=== PATIENT | female | born 1975 | race Caucasian/White ===

== ENCOUNTER 2018-10-05 12:08 | Emergency (ER) | payer MEDICARE, MEDICAID ==
[~2018-10-05] VITALS: Ht 165.1 cm; Wt 68.0 kg
[~2018-10-05 12:08] MED LIST: ADDERALL 10 MG10 MG PO; ATIVAN1 MG ORAL; BACTRIM-DS1 EA PO; CEPHALEXIN500 MG PO; CYMBALTA20 MG ORAL; DEPAKOTE500 MG PO; GABAPENTIN600 MG PO; MONISTAT 7100 MG VG; NEURONTIN100 MG ORAL; NEURONTIN600 MG PO; NORCO 10-325 T1 EACH ORAL; NORCO 5-325 TA1 EACH PO; NORCO1 E1 PO; PRILOSEC20 MG ORAL
[2018-10-05] MEDS ORDERED: IVERMECTIN5 GM MC (12:20)
--- NOTE | 2018-10-05 12:20 | NUR ---
ED Nurse Note: patient walked into ED c/o contact dermatitis she states that she just different ER today, she was prescribed permethirin cream that she showed to RN. patient is a/o x4.
--- NOTE | 2018-10-05 12:42 | Emergency Room Report ---
History of Present Illness General Chief Complaint: Skin Rash/Abscess Source: Patient Present Illness HPI 43-year-old female patient presents the ER complaining of parasitic skin infection that has been present for the past 4 days. Also reports parasites in stool. Patient states that she was seen by another hospital yesterday and told that she needs to be monitored while she is taking medication to treat it. States that she was prescribed permethrin and ivermectin, states she needs to have her "organs monitored" while she is taking the ivermectin. Reports that she was unable to fill the ivermectin prescription, states that she applied the permethrin to her skin and that her symptoms mildly improved. Denies other aggravating or relieving factors. 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 Review of Systems All Other Systems: negative except mentioned in HPI Physical Exam Vital Signs Date Time Temp Pulse Resp B/P (MAP) Pulse Ox O2 Delivery O2 Flow Rate FiO2 10/05/18 12:12 98.2 80 22 122/89 100 Room Air Sp02 EP Interpretation: reviewed, normal General Appearance: well appearing, no apparent distress, alert, GCS 15, non- toxic Head: normocephalic, atraumatic Eyes: bilateral eye normal inspection, bilateral eye PERRL ENT: hearing grossly normal, normal pharynx, no angioedema, normal voice, uvula midline, moist mucus membranes Neck: full range of motion Respiratory: lungs clear, normal breath sounds, no rhonchi, no respiratory distress, no accessory muscle use, no wheezing, speaking full sentences Cardiovascular #1: regular rate, rhythm, no edema Gastrointestinal: non tender, soft, no mass, non-distended, no guarding, no rebound Genitourinary: no CVA tenderness Musculoskeletal: back normal, digits/nails normal, gait/station normal, normal range of motion, non-tender Neurologic: alert, oriented x3, responsive, motor strength/tone normal, sensory intact Skin: rash - bialteral upper extremities: hyperpigmented skin macules, mild erytheam, no edema, no TTP, no palpable mass, no target sign, no central clearing Medical Decision Making PA Attestation Dr. Price is my supervising Physician whom patient management has been discussed with. Homeless Attestation Nivia Guerrero have assessed and agree that the patient is medically stable for discharge to an outpatient disposition. Diagnostic Impression: Primary Impression: Rash and other nonspecific skin eruption ER Course Pt. presents to the ED c/o rash. Ddx considered but are not limited to atopic dermatitis, scabies, shingles, hives, urticaria, angiodema, allergic reaction, impetigo, parasitic infection. Patient's vitals stable, physical exam benign, do not believe patient requires labs drawn at this time. Vital signs: are WNL, pt. is afebrile ER COURSE Provided with permethrin in the ER. informed patient she must followup with PCP and discuss further treatment and lab monitoring while taking ivermectin. Informed patient she needs to fill prescription for ivermectin and should contact nearby pharmacies. Followup with dermatology. Followup with infectious disease. Discuss referral with PCP. ER precautions given. DISCHARGE: Rx provided for permethrin At this time pt. is stable for d/c to home. Patient resting comfortably, in no acute distress, nontoxic appearinge. Will provide printed patient care instructions, and any necessary prescriptions. Care plan and follow up instructions have been discussed with the patient prior to discharge. Patient provided with list of healthcare clinics to establish primary care physician. Patient instructed to follow-up with primary care provider in 3 - 5 days. Patient questions asked and answered. ER precautions given. Patient instructed to return to ER immediately for any new or worsening of symptoms including but not limited to increasing SOB, persistent fever. - Please note that this Emergency Department Report was dictated using [employer] machine pilot can router technology software, occasionally this can lead to erroneous entry secondary to interpretation by the dictation equipment. Last Vital Signs Date Time Temp Pulse Resp B/P (MAP) Pulse Ox O2 Delivery O2 Flow Rate FiO2 10/05/18 12:12 98.2 80 22 122/89 100 Room Air Disposition: HOME, SELF-CARE Condition: Stable Scripts Permethrin* (ELIMITE*) 60 Gm Cream..g. 1 APPLIC TOPIC ONCE, #60 GM 0 Refills Apply cream from head to toe; leave on for 8-14 hours before washing off with water; may reapply in 1 week if live mites appear. Prov: Steffen Guerrero 10/05/18 Patient Instructions: Ivermectin tablets, Ova and Parasite Stool Exam, Rash, Scabies, Pediatric Additional Instructions: Followup with primary care provider in 3 -5 days. Request referral to dermatology as needed. Do not scratch or itch. Apply cool compresses to affected area. Wash all clothes and bedding. Take medications as directed. SE Benadryl drowsiness, do not take prior to drinking, driving, operating heavy machinery. Take Claritin during the day and Benadryl at night for itching symptoms. Patient questions asked and answered. ER precautions given, patient instructed to return to ER immediately for any new or worsening of symptoms. [facility] Steffen Guerrero Oct 05, 2018 12:42
[2018-10-05 12:50] VITALS: BP 122/89
[2018-10-05] MEDS ORDERED: PERMETHRIN60 GM TOPIC (13:47)
--- NOTE | 2018-10-05 13:50 | NUR ---
ED Nurse Note: Pt is cleared for discharge per ER PA Discharge instrcution/paper/ prescription given and explained to the patient, patient verbalized understanding. pt is alert and oriented x4, ambulated out of ED steady gait with all belongigns. pt is stable for DC. VSS. pt ID band removed. patient refused to get any help for her skilled nursing, she stated that "she has a safe place to go." patient proivded with sandwich and juice, but she refused to take sandwich. patient's clothing appropriate for weather. patient stated she can afford her transportation. patient refused further assessment of resources and services. .
[2018-10-05 19:10] VITALS: BP 122/89
== END 2018-10-05 13:50 | disposition home or self-care (01) ==
LOC: EMR 12:50
DX: L08.9 Local infection of the skin and subcutaneous tissue, unspecified (principal); Z59.0 Homelessness; Z88.8 Allergy status to other drugs, medicaments and biological substances
CPT/HCPCS: 99282

== ENCOUNTER 2018-10-17 12:03 | Emergency (ER) | payer MEDICARE, MEDICAID ==
[~2018-10-17] VITALS: Ht 165.1 cm; Wt 63.5 kg
[~2018-10-17 12:03] MED LIST changes: +IVERMECTIN5 GM MC; +PERMETHRIN60 GM TOPIC
--- NOTE | 2018-10-17 12:03 | NUR ---
ED Nurse Note: brought in by RA [facility] from [place] due to ETOH. Per EMS, pt reports that she drank about 20oz of vodka over 8 hours since last night. Hx of seizure and BS 116
[2018-10-17 12:05] VITALS: BP 116/79
--- NOTE | 2018-10-17 12:35 | NUR ---
ED Nurse Note: unable to get IV access nor draw blood, notified CAROLYNN Altman.
--- NOTE | 2018-10-17 12:42 | Emergency Room Report ---
History of Present Illness General Chief Complaint: Alcohol Intoxication Source: Patient, EMS Present Illness HPI 43-year-old female patient presents the ER brought by EMS complaining of alcohol intoxication. Reports drink "a bunch" of alcohol earlier today. Reports history of seizures when "coming down" from drinking alcohol. Denies history of seizure disorder. Denies thoughts of hurting himself or others. Denies other acute complaints. Reports does not remember hitting her head. Patient is a poor historian. Patient complaining of diarrhea, denies blood in diarrhea. Denies recent travel. Also complaining of epigastric pain. Denies vomiting. Allergies: Coded Allergies: HALOPERIDOL (Verified Allergy, Unknown, 01/25/15) RISPERIDONE (Verified Allergy, Unknown, 01/25/15) Patient History Past Medical History: see triage record Reviewed Nursing Documentation: PMH: Agreed; PSxH: Agreed Nursing Documentation-PMH Past Medical History: No History, Except For Hx Cardiac Problems: Yes - IV DRUG USE Hx Cancer: No Hx Gastrointestinal Problems: Yes - PANCREATITIS 6 month ago Hx Neurological Problems: Yes - "Exposed to heavy metals" Hx Seizures: Yes Review of Systems All Other Systems: negative except mentioned in HPI Physical Exam Vital Signs Date Time Temp Pulse Resp B/P (MAP) Pulse Ox O2 Delivery O2 Flow Rate FiO2 10/17/18 11:56 98.2 94 14 116/79 99 Sp02 EP Interpretation: reviewed, normal General Appearance: well appearing, no apparent distress, alert, GCS 15, non- toxic Head: normocephalic, atraumatic, other - negative rodriguez sign, negative raccoon eyes Eyes: bilateral eye normal inspection, bilateral eye PERRL ENT: hearing grossly normal, normal pharynx, no angioedema, normal voice, uvula midline, moist mucus membranes Neck: full range of motion, no bony tend Respiratory: lungs clear, normal breath sounds, no rhonchi, no respiratory distress, no accessory muscle use, no wheezing, speaking full sentences Cardiovascular #1: regular rate, rhythm, no edema Gastrointestinal: non tender, soft, no mass, non-distended, no guarding, no rebound Musculoskeletal: back normal, digits/nails normal, gait/station normal, normal range of motion, non-tender Neurologic: alert, oriented x3, responsive, motor strength/tone normal, sensory intact Psychiatric: mood/affect normal Skin: no rash Medical Decision Making PA Attestation Dr. Meeks is my supervising Physician whom patient management has been discussed with. Homeless Attestation I, The treating provider, Steffen PRADHAN, has assessed and agrees that patient is medically stable for discharge to an outpatient disposition. Diagnostic Impression: Primary Impression: Acute alcoholic intoxication Additional Impression: Urinary tract infection ER Course Pt. presents to the ED for alcohol intoxication Ddx considered but are not limited to drug use, alcohol use, psychosis. Vital signs: are WNL, pt. is afebrile ER COURSE: CBC and CMP unremarkable Elevated serum alcohol, patient is salicylates or acetaminophen levels. Urine sample not provided by patient. CT head shows no acute intracranial supply. patient resting comfortably in bed, in no acute distress, nontoxic appearing. Physical exam benign, lungs clear to auscultation, no trauma or lacerations, no abdominal TTP. Will allow patient to sleep off EtOH intoxication Patient able to eat food and drink liquids without difficulty. Patient able to answer questions, and AOx4 Patient able to walk and talk without difficulty. Patient appears stable for discharge to home, ambulating without difficulty. Instructed patient to not drink alcohol in excess. ER precautions given. Do not believe patient is a danger to herself or others at this time. Patient seen by Dr. Price, informed by him to provide patient with prescription for urinary tract infection, patient states she had a urinary tract infection however she lost the prescription. Also discharge patient home with Librium due to withdrawal effects from alcohol. Advised patient not to drink alcohol in excess. DISCHARGE: At this time pt is stable for d/c to home. Patient is resting comfortably, in no acute distress, nontoxic appearing, talking without difficulty. Patient to take medications as instructed Will provide with patient care instructions and any necessary prescriptions. Care plan and follow-up instructions provided. Patient instructed to follow-up with primary care provider in 3 - 5 days. Patient questions asked and answered. Patient reports understanding and agreement to treatment plan. ER precautions given. Patient instructed to return to ER immediately for any new or worsening of symptoms including but not limited to increasing SOB, persistent fever. - Please note that this Emergency Department Report was dictated using [employer] technology software, occasionally this can lead to erroneous entry secondary to interpretation by the dictation equipment. Labs Test 10/17/18 14:30 White Blood Count 7.6 K/UL (4.8-10.8) Red Blood Count 4.57 M/UL (4.20-5.40) Hemoglobin 13.2 G/DL (12.0-16.0) Hematocrit 41.4 % (37.0-47.0) Mean Corpuscular Volume 91 FL (80-99) Mean Corpuscular Hemoglobin 29.0 PG (27.0-31.0) Mean Corpuscular Hemoglobin Concent 32.0 G/DL (32.0-36.0) Red Cell Distribution Width 16.7 % (11.6-14.8) Platelet Count 384 K/UL (150-450) Mean Platelet Volume 5.9 FL (6.5-10.1) Neutrophils (%) (Auto) 72.0 % (45.0-75.0) Lymphocytes (%) (Auto) 23.1 % (20.0-45.0) Monocytes (%) (Auto) 4.1 % (1.0-10.0) Eosinophils (%) (Auto) 0.3 % (0.0-3.0) Basophils (%) (Auto) 0.5 % (0.0-2.0) Sodium Level 144 MMOL/L (136-145) Potassium Level 3.7 MMOL/L (3.5-5.1) Chloride Level 107 MMOL/L (98-107) Carbon Dioxide Level 27 MMOL/L (21-32) Anion Gap 10 mmol/L (5-15) Blood Urea Nitrogen 5 mg/dL (7-18) Creatinine 0.7 MG/DL (0.55-1.30) Estimat Glomerular Filtration Rate > 60 mL/min (>60) Glucose Level 78 MG/DL (74-106) Calcium Level 8.2 MG/DL (8.5-10.1) Total Bilirubin 0.3 MG/DL (0.2-1.0) Aspartate Amino Transf (AST/SGOT) 105 U/L (15-37) Alanine Aminotransferase (ALT/SGPT) 57 U/L (12-78) Alkaline Phosphatase 106 U/L (46-116) Total Protein 8.2 G/DL (6.4-8.2) Albumin 3.2 G/DL (3.4-5.0) Globulin 5.0 g/dL Albumin/Globulin Ratio 0.6 (1.0-2.7) Salicylates Level 0.6 ug/mL (2.8-20) Acetaminophen Level < 2 MCG/ML (10-30) Serum Alcohol 385 mg/dL CT/MRI/US Diagnostic Results CT/MRI/US Diagnostic Results : Imaging Test Ordered: CT head Impression Impression: Negative for acute intracranial bleed or mass effect. Central and cortical volume loss, striking for age and progressive since prior exam of 03/04/2012 Last Vital Signs Date Time Temp Pulse Resp B/P (MAP) Pulse Ox O2 Delivery O2 Flow Rate FiO2 10/17/18 11:56 98.2 94 14 116/79 99 Status: improved Disposition: HOME, SELF-CARE Condition: Stable Scripts Cephalexin* (KEFLEX*) 500 Mg Capsule 500 MG ORAL EVERY 12 HOURS, #14 CAP 0 Refills Prov: Steffen Guerrero 10/17/18 Chlordiazepoxide Hcl* (LIBRIUM*) 10 Mg Capsule 10 MG ORAL THREE TIMES A DAY, #15 CAP 0 Refills Prov: Steffen Guerrero 10/17/18 Patient Instructions: Alcohol Intoxication, [id number], Urinary Tract Infection, [id number] Additional Instructions: Followup with primary care provider and followup with and./or OBGYN. Do not drink alcohol in excess. Follow-up with drug and alcohol rehab treatment center. Drink plenty of fluids. Take medications as directed. Patient questions asked and answered. ER precautions given, patient instructed to return to ER immediately for any new or worsening of symptoms. Steffen Guerrero Oct 17, 2018 12:42
--- NOTE | 2018-10-17 13:24 | Diagnostic Imaging Report ---
Indications: Altered level of consciousness, history of alcohol abuse Technique: Spiral acquisitions obtained through the brain. Angled axial and coronal 5 x 5 mm slices were reconstructed. Total dose length product 1326.46 mGycm. CTDI vol(s) 70.38 mGy. Dose reduction achieved using automated exposure control Comparison: 03/04/2012 Findings: There is enlargement of the ventricles and extra axial CSF spaces which is striking for age and progressive since prior exam of 03/04/2012. No acute intercranial hemorrhage nor edema, mass effect, nor midline shift. Normal awad-white differentiation. Intact calvarium. Visualized orbits and sinuses are unremarkable. The mastoids are clear. Impression: Negative for acute intracranial bleed or mass effect. Central and cortical volume loss, striking for age and progressive since prior exam of 03/04/[address] scanner at [facility] is accredited by the [employer] and the scans are performed using protocols designed to limit radiation exposure to as low as reasonably achievable to attain images of sufficient resolution adequate for diagnostic evaluation.
--- NOTE | 2018-10-17 13:30 | NUR ---
ED Nurse Note: Multiple RNs attempted, notified RICCO Cortes. RICCO Cortes will come and try when she can. indoor plant technician contacted to draw blood.
[2018-10-17 14:43] LABS: BASOPHILS % (AUTO) 0.5 % (0.0-2.0); EOSINOPHILS % (AUTO) 0.3 % (0.0-3.0); HEMATOCRIT 41.4 % (37.0-47.0); HEMOGLOBIN 13.2 G/DL (12.0-16.0); LYMPHOCYTES % (AUTO) 23.1 % (20.0-45.0); MEAN CORPUSCULAR VOLUME 91 FL (80-99); MONOCYTES % (AUTO) 4.1 % (1.0-10.0); PLATELET COUNT 384 K/UL (150-450); RED BLOOD COUNT 4.57 M/UL (4.20-5.40); RED CELL DISTRIBUTION WIDTH 16.7 % (11.6-14.8); WHITE BLOOD COUNT 7.6 K/UL (4.8-10.8)
--- NOTE | 2018-10-17 14:44 | NUR ---
ED Nurse Note: PER , IT IS OK NOT HAVING IV ACCESS. PT IS SLEEPING IN THE ROOM, NO S/S OF DISTRESS. Addendum: 10/17/18 at 1917 by [email or web address] ED Nurse Note: PER , IT IS OK NOT HAVING IV ACCESS AND NO URINE NEEDED. PT IS SLEEPING IN THE ROOM, NO S/S OF DISTRESS.
[2018-10-17 14:55] LABS: ANION GAP 10 mmol/L (5-15); BLOOD UREA NITROGEN 5 mg/dL (7-18); CALCIUM 8.2 MG/DL (8.5-10.1); CARBON DIOXIDE 27 MMOL/L (21-32); CHLORIDE 107 MMOL/L (98-107); CREATININE 0.7 MG/DL (0.55-1.30); POTASSIUM 3.7 MMOL/L (3.5-5.1); SODIUM 144 MMOL/L (136-145)
[2018-10-17 15:00] LABS: ALANINE AMINOTRANSFERASE 57 U/L (12-78); ALBUMIN 3.2 G/DL (3.4-5.0); ALBUMIN/GLOBULIN RATIO 0.6 (1.0-2.7); ALKALINE PHOSPHATASE 106 U/L (46-116); ASPARTATE AMINO TRANSFERASE 105 U/L (15-37); BILIRUBIN,TOTAL 0.3 MG/DL (0.2-1.0)
[2018-10-17 16:00] VITALS: BP 116/79
--- NOTE | 2018-10-17 19:15 | NUR ---
HAND-OFF: Report given to JAVIER Hatfield. No s/s of distress.
--- NOTE | 2018-10-17 19:16 | NUR ---
ED Nurse Note: Received report from Amanda/RN. Pt is A/O X 4. VSS.
[2018-10-17] MEDS ORDERED: chlordiazePOXIDE 25mg Cap ORAL ONE (20:45)
[2018-10-17] MEDS ORDERED: Cephalexin 500mg cap ORAL ONE (20:45)
[2018-10-17] MEDS ORDERED: LIBRIUM10 MG ORAL (20:50)
[2018-10-17] MEDS ORDERED: CEPHALEXIN500 MG ORAL (20:50)
[2018-10-17 21:01] VITALS: BP 113/74
--- NOTE | 2018-10-17 21:01 | NUR ---
ED Nurse Note: Pt has seen by Steffen/CAROLYNN, all orders carried outMeds given, Food provided. Pt is ready for Discharge. D/C instruction and Prescription given to Pt and verbalized understanding. ID band removed. Pt d/c from ED with steady gait with all her belongings.
== END 2018-10-17 21:01 | disposition home or self-care (01) ==
LOC: EDBD 12:03 → EMR 12:40
DX: F10.129 Alcohol abuse with intoxication, unspecified (principal); N39.0 Urinary tract infection, site not specified
CPT/HCPCS: 36415; 70450; 80053; 85025; 96360; 99284; G0480; 80329